=== PATIENT | male | born 1995 | race Caucasian/White ===

== ENCOUNTER 2021-10-14 10:06 | Emergency (ER) | payer SELFPAY ==
[~2021-10-14] VITALS: Ht 188 cm; Wt 84.0 kg
[2021-10-14 10:16] VITALS: BP 119/79
[2021-10-14] MEDS ORDERED: LORA10CA PO (10:31)
[2021-10-14] MEDS ORDERED: PERM60CR19 TP (10:31)
[2021-10-14] MEDS ORDERED: LORA10TA65 PO (13:33)
== END 2021-10-14 10:53 | disposition home or self-care (01) ==
LOC: ER 10:07
DX: B86 Scabies (principal); Z79.899 Other long term (current) drug therapy
CPT/HCPCS: 99283

== ENCOUNTER 2021-10-16 13:55 | Emergency (ER) | payer MEDICAID ==
[~2021-10-16] VITALS: Ht 188 cm; Wt 81.8 kg
[~2021-10-16 13:55] MED LIST: LORA10CA PO; LORA10TA65 PO; PERM60CR19 TP
[2021-10-16 14:06] VITALS: BP 112/88
== END 2021-10-16 15:21 | disposition left against medical advice (07) ==
LOC: ER 13:56
DX: B86 Scabies (principal); F12.90 Cannabis use, unspecified, uncomplicated; F17.200 Nicotine dependence, unspecified, uncomplicated; Z79.899 Other long term (current) drug therapy
CPT/HCPCS: 99281